=== PATIENT | female | born 1950 | race Caucasian/White ===

== ENCOUNTER → 2017-01-04 | Outpatient (REF) | payer MEDICARE ==
[2017-01-04 13:09] LABS: MEAN CORPUSCULAR HEMOGLOBIN 28.5 pg (27.0-33.0); MEAN CORPUSCULAR HGB CONC 32.6 g/dl (32.0-36.5); MEAN CORPUSCULAR VOLUME 87.3 fl (80.0-96.0); RED CELL DISTRIBUTION WIDTH 13.5 % (11.5-14.5); WHITE BLOOD COUNT 5.2 K/mm3 (4.0-10.0)
[2017-01-04 13:35] LABS: ALBUMIN 3.5 GM/DL (3.2-5.2); ALBUMIN/GLOBULIN RATIO 0.97 (1.00-1.93); ALKALINE PHOSPHATASE 100 U/L (45-117); ALT/SGPT 28 U/L (12-78); ANION GAP 7 MEQ/L (8-16); AST/SGOT 15 U/L (15-37); BILIRUBIN,DIRECT 0.2 MG/DL (0.0-0.2); BILIRUBIN,TOTAL 0.6 MG/DL (0.2-1.0); BLOOD UREA NITROGEN 16 MG/DL (7-18); CALCIUM LEVEL 8.9 MG/DL (8.8-10.2); CARBON DIOXIDE LEVEL 32 MEQ/L (21-32); CHLORIDE LEVEL 100 MEQ/L (98-107); CREATININE FOR GFR 0.73 MG/DL (0.55-1.02); GLOMERULAR FILTRATION RATE > 60.0 (>45); GLUCOSE, FASTING 121 MG/DL (80-110); POTASSIUM SERUM 3.9 MEQ/L (3.5-5.1); SODIUM LEVEL 139 MEQ/L (136-145); TOTAL PROTEIN 7.1 GM/DL (6.4-8.2)
== END ==
LOC: M LABDRWAD 12:07
PROVIDERS: ATTEND Physician Assistant
DX: K74.60 Unspecified cirrhosis of liver (principal)

== ENCOUNTER → 2017-05-10 | Outpatient (CLI) | payer MEDICARE ==
--- NOTE | 2017-05-10 12:04 | REP ---
Chest two views HISTORY: Shortness of breath Comparison: None The lungs are clear. The cardiac silhouette is enlarged. The pulmonary vasculature is normal in appearance. Degenerative change is present in the thoracic spine. IMPRESSION: No acute disease. Signed by Gaurav Larose MD 05/10/2017 11:56 A
== END ==
LOC: M SMT 11:05
PROVIDERS: ATTEND Internal Medicine Pulmonary Disease
DX: R06.02 Shortness of breath (principal)

== ENCOUNTER → 2017-06-10 | Outpatient (CLI) | payer MEDICARE ==
--- NOTE | 2017-06-15 05:59 | SLEEPCENT ---
DATE OF PROCEDURE: 06/10/2017 ORDERED BY: Dr. Parikh. INTERPRETATION: Nocturnal polysomnography was performed due to concern for the obstructive sleep apnea syndrome in this patient with a history of abnormal nocturnal oximetry displaying variable desaturations and nonrestorative sleep with comorbidities of hypertension. 8 hours and 34 minutes of data were reviewed. There were 332 minutes of sleep identified. Sleep latency was prolonged at 133 minutes. REM latency was prolonged at 201 minutes. Sleep architecture showed fragmentation early in the study. There were 2 REM periods appreciated. Overall sleep efficiency was fair at 65%. There was a reduction in REM time. EKG showed a sinus rhythm with an average heart rate of 65 beats per minute. Rate variability was seen surrounding respiratory events. Rate ranged 55-80 beats per minute. EEG showed some Alpha intrusion into non-REM stages possible sweat artifact. There were 67 respiratory events identified of 10 seconds in duration or greater for an apnea-hypopnea index of 12.1. The events were primarily obstructive hypopneas not exclusive to sleep stage nor body posture. Significant snoring was noted over the course of the study and respiratory related arousals occurred 2.9 times per hour. Oxygen desaturations were seen into the 80s. There was some limb activity but no trains of events and remaining measures of sleep physiology were reasonably normal. IMPRESSION: Obstructive sleep apnea syndrome (G47.33). Apnea-hypopnea index 12.1. RECOMMENDATION: The patient should be encouraged to return to the sleep disorder center for pressure therapy. In the interim, alcohol and sedative avoidance should be practiced and caution exercised during the operation of motor vehicles. cc: Jeanine Zaidi MD
== END ==
LOC: M SLEEP 19:37
PROVIDERS: ATTEND Internal Medicine Pulmonary Disease
DX: R40.0 Somnolence (principal)

== ENCOUNTER → 2017-07-22 | Outpatient (CLI) | payer MEDICARE ==
--- NOTE | 2017-07-25 19:01 | SLEEPCENT ---
DATE OF PROCEDURE: 07/22/2017 ORDERED BY: Dr. Parikh Nocturnal polysomnography was performed for the titration of pressure therapy in this patient with obstructive sleep apnea syndrome, apnea-hypopnea index 12.1. For testing, a [employer] Simplus full face mask of small size was used, 4 cm of water pressure were applied to the circuit and the lights were extinguished. 7 hours and 52 minutes of data were reviewed. There were 308 minutes of sleep identified. Sleep latency was mildly prolonged at 27 minutes. Rapid eye movement (REM) latency more so prolonged at 136 minutes. Sleep architecture improved with optimal pressure therapy. Overall sleep efficiency was 66.1% due to a period of wake between 1:00 and 2:30. The patient's electrocardiogram showed a sinus rhythm with an average heart rate of 58 beats per minute. EEG showed normal waveforms for awake and sleep. Respiratory events were best palliated with continuous positive airway pressure (CPAP) at a pressure of +7. Remaining measures of sleep physiology are normal. IMPRESSION: Obstructive sleep apnea syndrome (G47.33). RECOMMENDATION: Nightly use of pressure therapy 7 cm of water. Copy To: Dr. Zaidi
== END ==
LOC: M SLEEP 19:29
PROVIDERS: ATTEND Internal Medicine Pulmonary Disease
DX: G47.33 Obstructive sleep apnea (adult) (pediatric) (principal)

== ENCOUNTER → 2020-02-20 | Outpatient (REF) | payer MEDICARE | LOC: M SFHCWAGY 17:42 | PROVIDERS: ATTEND Nurse Practitioner Family | DX: Z12.4 Encounter for screening for malignant neoplasm of cervix (principal); N95.2 Postmenopausal atrophic vaginitis; R87.610 Atypical squamous cells of undetermined significance on cytologic smear of cervix (ASC-US) | CPT/HCPCS: 87624; G0123 ==

== ENCOUNTER → 2020-02-20 | Outpatient (CLI) | payer MEDICARE ==
--- NOTE | 2020-02-22 13:29 | REPMRS ---
Patient History Patient is postmenopausal. No known family history of cancer. 3D TOMOSYNTHESIS WAS PERFORMED. [facility] lifetime risk for breast cancer is 4.4%. NOREEN REYES B. Digital Woman Screen Mammo: February 20, 2020 - Exam #: [id number] Bilateral CC and MLO view(s) were taken. Technologist: Zully Wise, Technologist Prior study comparison: 2014, bilateral digital mammo screening bilat, performed at [facility]. FINDINGS: There are scattered fibroglandular densities. There has been no change in the appearance of the mammogram from the prior studies. There is a mild amount of residual fibroglandular tissue which is fairly symmetric. There is no interval development of dominant mass, architectural distortion, or clustered microcalcification suggestive of malignancy. Assessment: BI-RADS/ACR category 1 mammogram. Negative Mammogram. Recommendation Routine screening mammogram in 1 year (for women over age 40). This mammogram was interpreted with the aid of an FDA-approved computer-aided dectection system. Electronically Signed By: Fran Shipman MD 02/22/20 [id number]
== END ==
LOC: M WHC 13:53
PROVIDERS: ATTEND Nurse Practitioner Family
DX: Z12.31 Encounter for screening mammogram for malignant neoplasm of breast (principal); Z78.0 Asymptomatic menopausal state

== ENCOUNTER → 2021-10-15 | Outpatient (CLI) | payer MEDICARE | LOC: M RAD 10:24 | PROVIDERS: ATTEND Internal Medicine Pulmonary Disease | DX: Z87.891 Personal history of nicotine dependence (principal) ==

== ENCOUNTER → 2021-11-18 | Outpatient (CLI) | payer MEDICARE | LOC: M WHC 10:46 | PROVIDERS: ATTEND Advanced Practice Midwife | DX: Z12.31 Encounter for screening mammogram for malignant neoplasm of breast (principal) ==

== ENCOUNTER → 2021-11-18 | Outpatient (CLI) | payer MEDICARE | LOC: M WHC 08:11 | PROVIDERS: ATTEND Advanced Practice Midwife | DX: Z12.31 Encounter for screening mammogram for malignant neoplasm of breast (principal) ==

== ENCOUNTER → 2021-11-25 | Outpatient (REF) | payer MEDICARE | LOC: M SFHCWAGY 17:05 | PROVIDERS: ATTEND Advanced Practice Midwife | DX: N90.89 Other specified noninflammatory disorders of vulva and perineum (principal); C51.9 Malignant neoplasm of vulva, unspecified ==

== ENCOUNTER → 2021-12-28 | Outpatient (CLI) | payer MEDICARE ==
[~2021-12-28] MED LIST: AMLO10TA PO; AMLO1TAB24 PO; D200CAP3 PO; HYDR-3490 PO; LOSA50TA28 PO; METO1TAB32 PO; OMEP-173 PO; POTA99CA2 PO
== END ==
LOC: M LABSMTC 11:31
PROVIDERS: ATTEND Anesthesiology
DX: Z11.52 Encounter for screening for COVID-19 (principal); Z20.822 Contact with and (suspected) exposure to COVID-19

== ENCOUNTER 2022-01-01 09:57 | Day surgery (SDC) | payer MEDICARE ==
[~2022-01-01] VITALS: Ht 152.4 cm; Wt 105.1 kg
[~2022-01-01 09:57] MED LIST changes: +LIDOCAINE 1% MDV 20ML VIAL SQ PRN; +LR 1,000 ML IV ONE
[2022-01-01] MEDS ORDERED: CIPR250T3 PO (10:05)
[2022-01-01] MEDS ORDERED: ESTROGENS VAGINAL CREAM 30GM As Ordered ONE (11:06)
[2022-01-01] MEDS ORDERED: BUPIVACAINE HCL 0.25% 30ML VIAL As Ordered ONE (11:06)
[2022-01-01] MEDS ORDERED: fentaNYL 100 MCG/2 ML INJECTION As Ordered ONE (11:08)
[2022-01-01] MEDS ORDERED: propofoL 200 MG/20 ML VIAL As Ordered ONE (11:08)
[2022-01-01] MEDS ORDERED: LIDOCAINE 2% 100MG/5ML SDV (FOR ANES.) As Ordered ONE (11:08)
[2022-01-01] MEDS ORDERED: MIDAZOLAM INJ 2MG/2ML VIAL (J2250 PER 1MG) As Ordered ONE (11:08)
[2022-01-01] MEDS ORDERED: dexameTHASONE 4 MG/ML 1ML VIAL (J1100 PER 1MG) As Ordered ONE (11:28)
[2022-01-01] MEDS ORDERED: ONDANSETRON 4MG/2ML VIAL As Ordered ONE (11:28)
[2022-01-01] MEDS ORDERED: LR 1,000 ML IV SCH ×2 (12:15→12:20)
[2022-01-01] MEDS ORDERED: ONDANSETRON 4MG/2ML VIAL IV PRN (12:15)
[2022-01-01] MEDS ORDERED: fentaNYL 100 MCG/2 ML INJECTION IV PRN (12:15)
[2022-01-01] MEDS ORDERED: oxyCODONE 5MG TAB PO PRN (12:15)
[2022-01-01 12:55] VITALS: BP 166/71
[2022-01-01] MEDS ORDERED: ACETAMINOPHEN 500 MG TAB PO ONE (13:00)
== END 2022-01-01 13:10 | disposition home or self-care (01) ==
LOC: M SDC 09:57
PROVIDERS: ATTEND Specialist
DX: C51.9 Malignant neoplasm of vulva, unspecified (principal); I10 Essential (primary) hypertension; K21.9 Gastro-esophageal reflux disease without esophagitis; R06.02 Shortness of breath; G47.30 Sleep apnea, unspecified; R06.83 Snoring; R32 Unspecified urinary incontinence; Z87.891 Personal history of nicotine dependence; Z79.899 Other long term (current) drug therapy; Z79.2 Long term (current) use of antibiotics; Z98.890 Other specified postprocedural states
CPT/HCPCS: 57410; J1100; J2250; J2405; J3010

== ENCOUNTER → 2022-06-28 | Outpatient (CLI) | payer MEDICARE ==
[~2022-06-28] MED LIST changes: +CIPR250T3 PO; -LIDOCAINE 1% MDV 20ML VIAL SQ PRN; -LR 1,000 ML IV ONE
== END ==
LOC: M LABSMTC 11:13
PROVIDERS: ATTEND Anesthesiology
DX: Z01.818 Encounter for other preprocedural examination (principal); Z11.52 Encounter for screening for COVID-19

== ENCOUNTER → 2022-06-30 | Day surgery (SDC) | payer MEDICARE ==
[~2022-06-30] VITALS: Ht 152.4 cm; Wt 105.7 kg
[~2022-06-30] MED LIST changes: +BSS IRRIG/VANCO(10MG)/TOBRA(5MG)/EPINEPH(1:1000-0.5CC)500ML BAG-ORONLY IR ONE; +CEFUROXIME 1MG/0.1ML INTRACAMERAL INJ As Ordered ONE; +CYCLOPENTOLATE 1% OPHTH SOLN 2 ML BTL OS SCH; +LIDOCAINE 1% SDV 5ML VIAL As Ordered ONE; +LIDOCAINE 3.5 % 1ML OPHTH TOPICAL GEL OU ONE; +MIDAZOLAM INJ 2MG/2ML VIAL (J2250 PER 1MG) As Ordered ONE; +OFLOXACIN 0.3 % (OCUFLOX) OPTH SOL 5ML OS ONE; +PHENYLEPHRINE 2.5% OPHTH SOL 2ML OS SCH; +PHENYLEPHRINE HCL 10 % OPHTH. SOL 5ML OS PRN; +TROPICAMIDE 1% OPHTH SOLN 2ML OS SCH; +fentaNYL 100 MCG/2 ML INJECTION As Ordered ONE
[2022-06-30 13:26] VITALS: BP 148/66
== END | disposition home or self-care (01) ==
LOC: M SDC 10:00
PROVIDERS: ATTEND Ophthalmology
DX: H25.12 Age-related nuclear cataract, left eye (principal); I10 Essential (primary) hypertension; G47.33 Obstructive sleep apnea (adult) (pediatric); Z87.891 Personal history of nicotine dependence; Z79.899 Other long term (current) drug therapy
CPT/HCPCS: 66984; J0697; J2250; J3010; V2632

== ENCOUNTER → 2022-07-26 | Outpatient (CLI) | payer MEDICARE ==
[~2022-07-26] MED LIST changes: -BSS IRRIG/VANCO(10MG)/TOBRA(5MG)/EPINEPH(1:1000-0.5CC)500ML BAG-ORONLY IR ONE; -CEFUROXIME 1MG/0.1ML INTRACAMERAL INJ As Ordered ONE; -CYCLOPENTOLATE 1% OPHTH SOLN 2 ML BTL OS SCH; -LIDOCAINE 1% SDV 5ML VIAL As Ordered ONE; -LIDOCAINE 3.5 % 1ML OPHTH TOPICAL GEL OU ONE; -MIDAZOLAM INJ 2MG/2ML VIAL (J2250 PER 1MG) As Ordered ONE; -OFLOXACIN 0.3 % (OCUFLOX) OPTH SOL 5ML OS ONE; -PHENYLEPHRINE 2.5% OPHTH SOL 2ML OS SCH; -PHENYLEPHRINE HCL 10 % OPHTH. SOL 5ML OS PRN; -TROPICAMIDE 1% OPHTH SOLN 2ML OS SCH; -fentaNYL 100 MCG/2 ML INJECTION As Ordered ONE
== END ==
LOC: M LABSMTC 10:05
PROVIDERS: ATTEND Anesthesiology
DX: Z01.812 Encounter for preprocedural laboratory examination (principal); Z11.52 Encounter for screening for COVID-19

== ENCOUNTER 2022-07-28 10:44 | Day surgery (SDC) | payer MEDICARE ==
[~2022-07-28] VITALS: Ht 152.4 cm; Wt 104.3 kg
[~2022-07-28 10:44] MED LIST changes: +CEFUROXIME 1MG/0.1ML INTRACAMERAL INJ As Ordered ONE; +LIDOCAINE 1% 1ML PF SYRINGE (OR EYE CASES) As Ordered ONE
[2022-07-28] MEDS ORDERED: MIDAZOLAM INJ 2MG/2ML VIAL (J2250 PER 1MG) As Ordered ONE (11:39)
[2022-07-28] MEDS ORDERED: fentaNYL 100 MCG/2 ML INJECTION As Ordered ONE (11:40)
[2022-07-28] MEDS ORDERED: ACETYLCHOLINE OPHTH SOLN 1% 2ML (MIOCHOL-E) As Ordered ONE (12:33)
[2022-07-28] MEDS ORDERED: PHENYLEPHRINE 2.5% OPHTH SOL 2ML OD SCH (12:35)
[2022-07-28] MEDS ORDERED: TROPICAMIDE 1% OPHTH SOLN 2ML OD SCH (12:35)
[2022-07-28] MEDS ORDERED: BSS IRRIG/VANCO(10MG)/TOBRA(5MG)/EPINEPH(1:1000-0.5CC)500ML BAG-ORONLY IR ONE (12:35)
[2022-07-28] MEDS ORDERED: PHENYLEPHRINE HCL 10 % OPHTH. SOL 5ML OD PRN (12:35)
[2022-07-28] MEDS ORDERED: CYCLOPENTOLATE 1% OPHTH SOLN 2 ML BTL OD SCH (12:35)
[2022-07-28] MEDS ORDERED: OFLOXACIN 0.3 % (OCUFLOX) OPTH SOL 5ML OD ONE (12:35)
[2022-07-28] MEDS ORDERED: LIDOCAINE 3.5 % 1ML OPHTH TOPICAL GEL OU ONE (12:35)
[2022-07-28 12:40] VITALS: BP 162/73
[2022-07-28] MEDS ORDERED: ONDANSETRON 4MG 2ML VIAL IV PRN (13:05)
== END 2022-07-28 13:51 | disposition home or self-care (01) ==
LOC: M SDC 10:44
PROVIDERS: ATTEND Ophthalmology
DX: H25.11 Age-related nuclear cataract, right eye (principal); I10 Essential (primary) hypertension; G47.30 Sleep apnea, unspecified; Z79.899 Other long term (current) drug therapy
CPT/HCPCS: 66984; J0697; J2250; J2405; J3010; V2632

== ENCOUNTER 2022-08-06 15:46 | Emergency (ER) | payer MEDICARE ==
[~2022-08-06] VITALS: Ht 152.4 cm; Wt 106.4 kg
[~2022-08-06 15:46] MED LIST changes: -CEFUROXIME 1MG/0.1ML INTRACAMERAL INJ As Ordered ONE; -LIDOCAINE 1% 1ML PF SYRINGE (OR EYE CASES) As Ordered ONE
[2022-08-06 16:36] LABS: BASO # 0.1 10^3/uL (0.0-0.2); BASO % 1.5 % (0.0-1.0); EOS # 0.3 10^3/uL (0.0-0.5); EOS % 3.1 % (0.0-3.0); HEMATOCRIT 47.1 % (36.0-47.0); HEMOGLOBIN 14.9 g/dl (12.0-15.5); LYMPH % 22.1 % (24.0-44.0); MEAN CORPUSCULAR HEMOGLOBIN 27.5 pg (27.0-33.0); MEAN CORPUSCULAR HGB CONC 31.6 g/dl (32.0-36.5); MEAN CORPUSCULAR VOLUME 86.9 fl (80.0-96.0); MONO # 0.9 10^3/uL (0.0-0.8); MONO % 9.6 % (2.0-8.0); NEUTROPHILS # 5.8 10^3/uL (1.5-8.5); NEUTROPHILS % 63.4 % (36.0-66.0); PLATELET COUNT, AUTOMATED 268 10^3/uL (150-450); RED BLOOD COUNT 5.42 10^6/uL (4.00-5.40); WHITE BLOOD COUNT 9.1 10^3/uL (4.0-10.0)
[2022-08-06] MEDS ORDERED: [UNRECOGNIZED DRUG - CODE] (16:38)
[2022-08-06] MEDS ORDERED: BRIM5DRO4 (16:38)
[2022-08-06] MEDS ORDERED: PREDOPD (16:38)
[2022-08-06 17:16] LABS: BLOOD UREA NITROGEN 14 MG/DL (9-23); CALCIUM LEVEL 8.8 MG/DL (8.3-10.6); CARBON DIOXIDE LEVEL 30 MMOL/L (20-31); CHLORIDE LEVEL 103 MMOL/L (98-107); GLOMERULAR FILTRATION RATE > 60.0 (>39); GLUCOSE, FASTING 119 MG/DL (74-106); POTASSIUM SERUM 3.3 MMOL/L (3.5-5.1); SODIUM LEVEL 141 MMOL/L (136-145)
[2022-08-06 17:38] LABS: ALBUMIN 3.9 G/DL (3.2-5.2); BILIRUBIN,DIRECT 0.1 MG/DL (<0.4); BILIRUBIN,TOTAL 0.4 MG/DL (0.3-1.2); TOTAL PROTEIN 7.7 G/DL (5.7-8.2)
[2022-08-06 18:41] VITALS: BP 164/82
[2022-08-06] MEDS ORDERED: CARA1TAB6 PO (18:49)
== END 2022-08-06 19:05 | disposition home or self-care (01) ==
LOC: M ED 15:46
DX: K21.9 Gastro-esophageal reflux disease without esophagitis (principal); R07.89 Other chest pain; I10 Essential (primary) hypertension; G47.33 Obstructive sleep apnea (adult) (pediatric); E66.9 Obesity, unspecified; Z85.828 Personal history of other malignant neoplasm of skin; Z79.899 Other long term (current) drug therapy

== ENCOUNTER → 2022-12-16 | Outpatient (CLI) | payer MEDICARE ==
[~2022-12-16] MED LIST changes: +BRIM5DRO4; +CARA1TAB6 PO; +PREDOPD; +[UNRECOGNIZED DRUG - CODE]
== END ==
LOC: M RAD 13:40
PROVIDERS: ATTEND Internal Medicine Pulmonary Disease
DX: Z12.2 Encounter for screening for malignant neoplasm of respiratory organs (principal); Z87.891 Personal history of nicotine dependence; R91.8 Other nonspecific abnormal finding of lung field

== ENCOUNTER → 2024-01-17 | Outpatient (CLI) | payer MEDICARE | LOC: M RAD 12:16 | PROVIDERS: ATTEND Internal Medicine Pulmonary Disease | DX: Z12.2 Encounter for screening for malignant neoplasm of respiratory organs (principal); Z87.891 Personal history of nicotine dependence ==

== ENCOUNTER 2024-08-03 22:13 | Emergency (ER) | payer MEDICARE ==
[~2024-08-03] VITALS: Ht 154.9 cm; Wt 104.0 kg
[2024-08-03] MEDS ORDERED: CEFP200T PO (23:31)
[2024-08-03] MEDS ORDERED: CETI10TA4 PO (23:33)
[2024-08-03] MEDS ORDERED: PRED20TA PO (23:33)
[2024-08-03] MEDS: FAMOTIDINE 20MG/2ML VIAL IVP ONE (23:39)
[2024-08-03] MEDS: methylPREDNISolone 125MG 2ML VIAL IV ONE (23:39)
[2024-08-03] MEDS: cefTRIAXone SOD 1 GM in DEXTROSE 5% (D5W) ADV/MINI-BAG 50 ML IV ONE (23:40)
[2024-08-03 23:43] VITALS: BP 140/63; TEMP 97.3; O2SAT 94
== END 2024-08-04 00:20 | disposition home or self-care (01) ==
LOC: M ED 22:13
DX: T78.40XA Allergy, unspecified, initial encounter (principal); I10 Essential (primary) hypertension; K21.9 Gastro-esophageal reflux disease without esophagitis; E55.9 Vitamin D deficiency, unspecified; Z79.52 Long term (current) use of systemic steroids; Z79.899 Other long term (current) drug therapy
CPT/HCPCS: 96374; 96375; 99284; J0696; J2919

== ENCOUNTER 2025-01-30 07:48 | Emergency (ER) | payer MEDICARE ==
[~2025-01-30] VITALS: Ht 152.4 cm; Wt 107.2 kg
[~2025-01-30 07:48] MED LIST changes: +AMLO-751 PO; -AMLO10TA PO; +CEFP200T PO; +CETI10TA4 PO; +PRED20TA PO
[2025-01-30] MEDS ORDERED: AMLO1TAB25 (07:59)
[2025-01-30] MEDS ORDERED: IRBE300T25 (07:59)
[2025-01-30] MEDS ORDERED: ELIQ5TAB (07:59)
[2025-01-30] MEDS ORDERED: METO1TAB7 (07:59)
[2025-01-30 08:53] LABS: BASO # 0.1 10^3/uL (0.0-0.2); BASO % 1.5 % (0.0-1.0); EOS # 0.2 10^3/uL (0.0-0.5); EOS % 2.6 % (0.0-3.0); HEMATOCRIT 44.7 % (36.0-47.0); HEMOGLOBIN 14.5 g/dl (12.0-15.5); LYMPH # 1.3 10^3/uL (1.5-5.0); LYMPH % 20.2 % (24.0-44.0); MEAN CORPUSCULAR HEMOGLOBIN 27.6 pg (27.0-33.0); MEAN CORPUSCULAR HGB CONC 32.4 g/dl (32.0-36.5); MEAN CORPUSCULAR VOLUME 85.1 fl (80.0-96.0); MONO # 0.6 10^3/uL (0.0-0.8); MONO % 9.3 % (2.0-8.0); NEUTROPHILS # 4.3 10^3/uL (1.5-8.5); NEUTROPHILS % 66.1 % (36.0-66.0); PLATELET COUNT, AUTOMATED 236 10^3/uL (150-450); RED BLOOD COUNT 5.25 10^6/uL (4.00-5.40); WHITE BLOOD COUNT 6.6 10^3/uL (4.0-10.0)
[2025-01-30 09:20] LABS: CK-MB VALUE MASS < 1.0 NG/ML (<3.6)
[2025-01-30 09:22] LABS: BLOOD UREA NITROGEN 12 MG/DL (9-23); CALCIUM LEVEL 9.2 MG/DL (8.3-10.6); CARBON DIOXIDE LEVEL 29 MMOL/L (20-31); CHLORIDE LEVEL 103 MMOL/L (98-107); CREATININE FOR GFR 0.62 MG/DL (0.55-1.30); GLOMERULAR FILTRATION RATE > 90.0 (>39); GLUCOSE, FASTING 133 MG/DL (74-106); POTASSIUM SERUM 3.9 MMOL/L (3.5-5.1); SODIUM LEVEL 141 MMOL/L (136-145)
[2025-01-30 09:30] LABS: CPK CREATINE PHOSPHOKINASE 54 U/L (34-145); MB/CK RELATIVE INDEX 1.85 (< OR =4)
[2025-01-30 10:11] LABS: CK-MB VALUE MASS < 1.0 NG/ML (<3.6)
[2025-01-30 10:33] LABS: CPK CREATINE PHOSPHOKINASE 53 U/L (34-145); MB/CK RELATIVE INDEX 1.88 (< OR =4)
[2025-01-30 11:15] VITALS: BP 149/65; TEMP 97.8; O2SAT 95
== END 2025-01-30 11:30 | disposition home or self-care (01) ==
LOC: M ED 07:48
DX: R07.89 Other chest pain (principal); I45.10 Unspecified right bundle-branch block; I48.91 Unspecified atrial fibrillation; I10 Essential (primary) hypertension; E78.5 Hyperlipidemia, unspecified; G47.33 Obstructive sleep apnea (adult) (pediatric); Z88.1 Allergy status to other antibiotic agents; Z79.01 Long term (current) use of anticoagulants; Z79.899 Other long term (current) drug therapy